=== PATIENT | female | born 1950 | race Two or more races ===

== ENCOUNTER → 2018-01-17 | Emergency (ER) | payer OTHER ==
[~2018-01-17] VITALS: Ht 160 cm; Wt 101.2 kg
[~2018-01-17] MED LIST: GLUCOTROL10 MG PO; JANUVIA100 MG PO; KETO10TA2 PO; METFORMIN HCL500 MG PO; NORFLEX100MG PO
== END | disposition home or self-care (01) ==
LOC: ER 16:05
DX: L02.415 Cutaneous abscess of right lower limb (principal)